=== PATIENT | female | born 1955 | race Caucasian/White ===

== ENCOUNTER 2025-09-30 06:14 | Day surgery (SDC) | payer MEDICARE, SELFPAY | END 2025-09-30 14:18 | disposition home or self-care (01) | LOC: GI 06:14 | PROVIDERS: ATTENDING PHYSICIAN Internal Medicine Gastroenterology; FAMILY PHYSICIAN Internal Medicine | DX: Z12.11 Encounter for screening for malignant neoplasm of colon (principal); K50.012 Crohn's disease of small intestine with intestinal obstruction; K64.8 Other hemorrhoids; K56.690 Other partial intestinal obstruction; Z86.0100 Personal history of colon polyps, unspecified | CPT/HCPCS: 45380; 88305 ==